=== PATIENT | female | born 1995 ===

== ENCOUNTER 2022-12-06 17:42 | Emergency (ER) | payer OTHER ==
[~2022-12-06] VITALS: Ht 175.3 cm; Wt 63.6 kg
[2022-12-06 18:08] VITALS: BP 122/75
[2022-12-06] MEDS ORDERED: SUMATRIPTAN SUCCINATE 25MG TABLET PO ONE (20:00)
[2022-12-06] MEDS ORDERED: METOCLOPRAMIDE HCL 10MG TABLET PO ONE (20:00)
[2022-12-06] MEDS ORDERED: KETOROLAC 15MG/ML VIAL IV ONE (20:00)
== END 2022-12-06 22:12 | disposition home or self-care (01) ==
LOC: ER 17:42
DX: R51.9 Headache, unspecified (principal); H92.02 Otalgia, left ear
CPT/HCPCS: 96374; 99283; J1885; J8597; Z7610